=== PATIENT | female | born 1985 | race Caucasian/White ===

== ENCOUNTER 2023-03-26 12:53 | Emergency (ER) | payer OTHER ==
[~2023-03-26] VITALS: Ht 157.5 cm; Wt 61.2 kg
[2023-03-26] MEDS ORDERED: CELE200C PO (13:35)
[2023-03-26] MEDS ORDERED: SERT200C PO (13:35)
[2023-03-26] MEDS ORDERED: GABA-531 PO (13:35)
[2023-03-26 13:36] VITALS: BP_SYST 118; PULSE 73; RESP 16; TEMP 97.1; O2SAT 99
[2023-03-26] MEDS ORDERED: NABU-140 PO (14:42)
[2023-03-26] MEDS ORDERED: KETOROLAC TROMETHAMINE 30 MG VIAL IM ONE (14:45)
[2023-03-26 15:27] VITALS: BP_SYST 107; PULSE 58; RESP 16; TEMP 97; O2SAT 99
== END 2023-03-26 15:26 | disposition home or self-care (01) ==
LOC: SED 12:53
DX: M25.552 Pain in left hip (principal); Z79.899 Other long term (current) drug therapy
CPT/HCPCS: 99283; 96372; J1885